=== PATIENT | female | born 1970 | race Two or more races ===

== ENCOUNTER 2016-08-27 09:00 | Outpatient (CLI) | payer BC ==
[~2016-08-27 09:00] MED LIST: CALC-168; LEVO25TA2 PO; PANT40TA4
[2016-08-27 09:46] LABS: BASOPHILS % (AUTO) 0.5 % (0.0-2.0); DIFF TOTAL % 100 %; EOSINOPHILS # (AUTO) 0.1 /CMM (0.0-0.7); EOSINOPHILS % (AUTO) 1.2 % (0.0-6.0); HEMATOCRIT 40 % (33-45); HEMOGLOBIN 13.3 g/dL (11.5-14.8); LYMPHOCYTES # (AUTO) 1.9 /CMM (0.8-4.8); LYMPHOCYTES % (AUTO) 22.3 % (20.0-44.0); MEAN CORPUSCULAR HEMOGLOBIN 28 PG (26.0-33.0); MEAN CORPUSCULAR HGB CONC 33 g/dl (31.0-36.0); MEAN CORPUSCULAR VOLUME 86 fL (82-100); MONOCYTES # (AUTO) 0.4 /CMM (0.1-1.30); MONOCYTES % (AUTO) 5.2 % (2.0-12.0); NEUTROPHILS # (AUTO) 6.1 /CMM (1.8-8.9); NEUTROPHILS % (AUTO) 70.8 % (43.0-81.0); PLATELET COUNT (AUTO) 264 /CMM (150-450); WHITE BLOOD COUNT (AUTO) 8.6 K/uL (4.3-11.0)
[2016-08-27 10:02] LABS: ALBUMIN 3.8 g/dL (3.4-5.0); BILIRUBIN,TOTAL 0.4 mg/dL (0.2-1.0); CALCIUM, SERUM 8.7 mg/dL (8.5-10.1); CREATININE 0.7 mg/dL (0.6-1.3); POTASSIUM 4.1 mmol/L (3.5-5.1); TOTAL PROTEIN, SERUM 7.5 g/dL (6.4-8.2)
[2016-08-27 10:10] LABS: THYROID STIMULATING HORMONE 2.513 uIU/mL (0.358-3.74)
[2016-08-28 08:09] LABS: THYROID PEROXIDASE (TPO) AB 202 IU/mL (0-34); VIT D, 25-HYDROXY 34.2 ng/mL (30.0-100.0)
[2016-08-28 09:22] LABS: *THYROGLOBULIN 15.7 IU/mL (0.0-0.9)
[2016-08-31 20:09] LABS: THYROGLOBULIN BY RIA <2.0 ng/mL (.)
== END 2016-08-27 23:59 | disposition home or self-care (01) ==
LOC: US 09:00
PROVIDERS: ATTEND Family Medicine
DX: E04.2 Nontoxic multinodular goiter (principal); E55.9 Vitamin D deficiency, unspecified
CPT/HCPCS: 36415; 76536-TC; 80053-TC; 80061-TC; 82306; 84439-TC; 84443-TC; 85025-TC; 86376

== ENCOUNTER 2016-10-20 07:42 | Outpatient (CLI) | payer BC ==
[2016-10-20 08:21] LABS: BASOPHILS % (AUTO) 0.5 % (0.0-2.0); EOSINOPHILS # (AUTO) 0.2 /CMM (0.0-0.7); EOSINOPHILS % (AUTO) 1.9 % (0.0-6.0); HEMATOCRIT 40 % (33-45); HEMOGLOBIN 13.3 g/dL (11.5-14.8); MEAN CORPUSCULAR HEMOGLOBIN 29 PG (26.0-33.0); MEAN CORPUSCULAR HGB CONC 33 g/dl (31.0-36.0); MEAN CORPUSCULAR VOLUME 86 fL (82-100); MONOCYTES # (AUTO) 0.5 /CMM (0.1-1.30); MONOCYTES % (AUTO) 5.6 % (2.0-12.0); NEUTROPHILS # (AUTO) 6.3 /CMM (1.8-8.9); PLATELET COUNT (AUTO) 315 /CMM (150-450); RED BLOOD CELL COUNT(AUTO) 4.65 MIL/uL (4.0-5.2)
[2016-10-20 09:40] LABS: ALBUMIN 3.7 g/dL (3.4-5.0); BILIRUBIN,TOTAL 0.3 mg/dL (0.2-1.0); CALCIUM, SERUM 9.1 mg/dL (8.5-10.1); CREATININE 0.8 mg/dL (0.6-1.3); POTASSIUM 4.3 mmol/L (3.5-5.1); TOTAL PROTEIN, SERUM 7.4 g/dL (6.4-8.2)
[2016-10-20] MEDS ORDERED: CT SWABBABLE VALVE TRANS SET 1 EA INFUS.SET MC ONE (09:52)
[2016-10-20] MEDS ORDERED: IV NS 0.9% 250 ML IV ONE (09:52)
[2016-10-20] MEDS ORDERED: IOHEXOL-300 100 ML VIAL IV ONE (09:52)
== END 2016-10-20 23:59 | disposition home or self-care (01) ==
LOC: CT 07:42
PROVIDERS: ATTEND Family Medicine
DX: N20.0 Calculus of kidney (principal); K76.0 Fatty (change of) liver, not elsewhere classified
CPT/HCPCS: 36415; 74178; 80053; 82150; 83690; 85025; J7050; Q9967; 87086-TC

== ENCOUNTER → 2016-10-24 | Outpatient (CLI) | payer BC | END | disposition home or self-care (01) | LOC: MRI 10:53 | PROVIDERS: ATTEND Family Medicine | DX: M17.11 Unilateral primary osteoarthritis, right knee (principal) | CPT/HCPCS: 73721-TC ==

== ENCOUNTER 2016-12-29 10:16 | Outpatient (CLI) | payer BC ==
[2016-12-29] MEDS ORDERED: GADOVERSETAMIDE 5 MMOL/10 ML VIAL IJ ONE (10:17)
[2016-12-29] MEDS ORDERED: GADOVERSETAMIDE 2.5 MMOL/5 ML VIAL IJ ONE (10:17)
== END 2016-12-29 23:59 | disposition home or self-care (01) ==
LOC: MRI 10:16
PROVIDERS: ATTEND Family Medicine
DX: N83.8 Other noninflammatory disorders of ovary, fallopian tube and broad ligament (principal); K76.0 Fatty (change of) liver, not elsewhere classified; Z90.710 Acquired absence of both cervix and uterus
CPT/HCPCS: 72197; 74183; A9579 ×2

== ENCOUNTER 2017-01-26 14:04 | Outpatient (CLI) | payer BC | END 2017-01-26 23:59 | disposition home or self-care (01) | LOC: LAB 14:04 | PROVIDERS: ATTEND Family Medicine | DX: N83.209 Unspecified ovarian cyst, unspecified side (principal) | CPT/HCPCS: 36415; 86304 ==

== ENCOUNTER 2017-02-06 08:34 | Outpatient (CLI) | payer BC ==
[2017-02-06 09:30] LABS: BASOPHILS % (AUTO) 0.5 % (0.0-2.0); EOSINOPHILS # (AUTO) 0.1 /CMM (0.0-0.7); HEMATOCRIT 39 % (33-45); HEMOGLOBIN 13.1 g/dL (11.5-14.8); LYMPHOCYTES # (AUTO) 1.9 /CMM (0.8-4.8); LYMPHOCYTES % (AUTO) 19.1 % (20.0-44.0); MEAN CORPUSCULAR HEMOGLOBIN 29 PG (26.0-33.0); MEAN CORPUSCULAR HGB CONC 34 g/dl (31.0-36.0); MEAN CORPUSCULAR VOLUME 87 fL (82-100); MONOCYTES # (AUTO) 0.5 /CMM (0.1-1.30); MONOCYTES % (AUTO) 5.4 % (2.0-12.0); NEUTROPHILS # (AUTO) 7.2 /CMM (1.8-8.9); PLATELET COUNT (AUTO) 284 /CMM (150-450); RDW COEFFICIENT OF VARIATION 13.9 (11.5-15.0); RED BLOOD CELL COUNT(AUTO) 4.53 MIL/uL (4.0-5.2); WHITE BLOOD COUNT (AUTO) 9.8 K/uL (4.3-11.0)
[2017-02-06 09:50] LABS: ALBUMIN 3.8 g/dL (3.4-5.0); BILIRUBIN,TOTAL 0.4 mg/dL (0.2-1.0); CALCIUM, SERUM 8.4 mg/dL (8.5-10.1); CREATININE 0.6 mg/dL (0.6-1.3); POTASSIUM 4.1 mmol/L (3.5-5.1); TOTAL PROTEIN, SERUM 7.2 g/dL (6.4-8.2)
[2017-02-06 09:59] LABS: THYROID STIMULATING HORMONE 1.483 uIU/mL (0.358-3.74)
[2017-02-07 09:13] LABS: T3 TOTAL 113 ng/dL (71-180); THYROID PEROXIDASE (TPO) AB 156 IU/mL (0-34)
== END 2017-02-06 23:59 | disposition home or self-care (01) ==
LOC: LAB 08:34
PROVIDERS: ATTEND Family Medicine
DX: E06.3 Autoimmune thyroiditis (principal)
CPT/HCPCS: 36415; 80053-TC; 80061-TC; 82306; 84439-TC; 84443-TC; 84480; 85025-TC; 86376

== ENCOUNTER 2017-07-08 09:46 | Outpatient (CLI) | payer BC ==
[2017-07-08 10:28] LABS: BASOPHILS % (AUTO) 0.5 % (0.0-2.0); EOSINOPHILS # (AUTO) 0.1 /CMM (0.0-0.7); EOSINOPHILS % (AUTO) 1.4 % (0.0-6.0); HEMATOCRIT 39 % (33-45); HEMOGLOBIN 13.1 g/dL (11.5-14.8); LYMPHOCYTES # (AUTO) 1.9 /CMM (0.8-4.8); LYMPHOCYTES % (AUTO) 24.1 % (20.0-44.0); MEAN CORPUSCULAR HEMOGLOBIN 28 PG (26.0-33.0); MEAN CORPUSCULAR HGB CONC 34 g/dl (31.0-36.0); MEAN CORPUSCULAR VOLUME 85 fL (82-100); MONOCYTES # (AUTO) 0.5 /CMM (0.1-1.30); NEUTROPHILS # (AUTO) 5.2 /CMM (1.8-8.9); PLATELET COUNT (AUTO) 310 /CMM (150-450); RDW COEFFICIENT OF VARIATION 14.2 (11.5-15.0); WHITE BLOOD COUNT (AUTO) 7.8 K/uL (4.3-11.0)
[2017-07-08 10:50] LABS: ALBUMIN 3.8 g/dL (3.4-5.0); BILIRUBIN,TOTAL 0.4 mg/dL (0.2-1.0); CALCIUM, SERUM 8.9 mg/dL (8.5-10.1); CREATININE 0.7 mg/dL (0.6-1.3)
[2017-07-08 11:04] LABS: TOTAL PROTEIN, SERUM 7.5 g/dL (6.4-8.2)
[2017-07-08 11:07] LABS: THYROID STIMULATING HORMONE 3.108 uIU/mL (0.358-3.74)
[2017-07-09 07:08] LABS: THYROID PEROXIDASE (TPO) AB 204 IU/mL (0-34)
== END 2017-07-08 23:59 | disposition home or self-care (01) ==
LOC: LAB 09:46
PROVIDERS: ATTEND Family Medicine
DX: Z11.59 Encounter for screening for other viral diseases (principal); E06.3 Autoimmune thyroiditis; E55.9 Vitamin D deficiency, unspecified
CPT/HCPCS: 36415; 80053-TC; 80061-TC; 82306; 84436-TC; 84443-TC; 85025-TC; 86376; 86709-TC

== ENCOUNTER 2017-07-17 08:36 | Outpatient (CLI) | payer BC | END 2017-07-18 23:59 | disposition home or self-care (01) | LOC: US 08:36 | PROVIDERS: ATTEND Family Medicine | DX: E04.1 Nontoxic single thyroid nodule (principal); N83.291 Other ovarian cyst, right side; N83.292 Other ovarian cyst, left side; N88.8 Other specified noninflammatory disorders of cervix uteri; Z90.710 Acquired absence of both cervix and uterus | CPT/HCPCS: 76536-TC; 76856-TC ==

== ENCOUNTER 2017-12-02 08:51 | Outpatient (CLI) | payer BC ==
[2017-12-02 09:49] LABS: APPEARANCE,URINE SL CLOUDY (CLEAR); BILIRUBIN,URINE NEGATIVE (NEGATIVE); BLOOD, URINE NEGATIVE Ery/uL (NEGATIVE); COLOR,URINE YELLOW (YELLOW); KETONES,URINE NEGATIVE (NEGATIVE); LEUKOCYTE ESTERASE ,URINE TRACE (NEGATIVE); NITRITE, URINE NEGATIVE (NEGATIVE); PH,URINE 7.5 (5.0-8.0); PROTEIN,URINE NEGATIVE (NEGATIVE); UGLUCOSE NEGATIVE (NEGATIVE); UROBILINOGEN,URINE 0.2 EU/dL (0.2)
[2017-12-02 09:52] LABS: BASOPHILS % (AUTO) 0.5 % (0.0-2.0); EOSINOPHILS % (AUTO) 1.7 % (0.0-6.0); HEMATOCRIT 39 % (33-45); HEMOGLOBIN 13.1 g/dL (11.5-14.8); LYMPHOCYTES # (AUTO) 1.8 /CMM (0.8-4.8); MEAN CORPUSCULAR HGB CONC 34 g/dl (31.0-36.0); MEAN CORPUSCULAR VOLUME 84 fL (82-100); MONOCYTES # (AUTO) 0.5 /CMM (0.1-1.30); MONOCYTES % (AUTO) 6.6 % (2.0-12.0); NEUTROPHILS # (AUTO) 5.7 /CMM (1.8-8.9); NEUTROPHILS % (AUTO) 69.2 % (43.0-81.0); PLATELET COUNT (AUTO) 339 /CMM (150-450); RDW COEFFICIENT OF VARIATION 13.7 (11.5-15.0); RED BLOOD CELL COUNT(AUTO) 4.65 MIL/uL (4.0-5.2); WHITE BLOOD COUNT (AUTO) 8.3 K/uL (4.3-11.0)
[2017-12-02 10:03] LABS: BACTERIA,URINE None seen /HPF (None Seen); RBC,URINE NONE SEEN /HPF (0-2); SQUAMOUS EPITHELIAL CELL,UR Few /HPF (None Seen)
[2017-12-02 10:09] LABS: ALBUMIN 4.1 g/dL (3.4-5.0); BILIRUBIN,TOTAL 0.4 mg/dL (0.2-1.0); CALCIUM, SERUM 9.4 mg/dL (8.5-10.1); CREATININE 0.7 mg/dL (0.6-1.3); TOTAL PROTEIN, SERUM 8.3 g/dL (6.4-8.2)
[2017-12-02 10:17] LABS: FREE T4 (FREE THYROXINE) 1.05 ng/dL (0.76-1.46); THYROID STIMULATING HORMONE 2.289 uIU/mL (0.358-3.74)
== END 2017-12-02 23:59 | disposition home or self-care (01) ==
LOC: LAB 08:51
PROVIDERS: ATTEND Family Medicine
DX: E55.9 Vitamin D deficiency, unspecified (principal); R10.9 Unspecified abdominal pain; R79.89 Other specified abnormal findings of blood chemistry
CPT/HCPCS: 36415; 80053-TC; 80061-TC; 81000-TC; 82306; 84439-TC; 84443-TC; 85025-TC

== ENCOUNTER 2018-06-21 09:53 | Outpatient (CLI) | payer BC | END 2018-06-21 23:59 | disposition home or self-care (01) | LOC: RAD 09:53 | PROVIDERS: ATTEND Family Medicine | DX: M77.32 Calcaneal spur, left foot (principal); M79.9 Soft tissue disorder, unspecified; M20.12 Hallux valgus (acquired), left foot | CPT/HCPCS: 71046; 73610-TC; 73630-TC ==

== ENCOUNTER 2018-08-05 09:17 | Outpatient (CLI) | payer BC ==
[2018-08-05] MEDS ORDERED: GADODIAMIDE 2.5 MMOL/5 ML VIAL IJ ONE (09:18)
[2018-08-05] MEDS ORDERED: GADODIAMIDE 5 MMOL/10 ML VIAL IJ ONE (09:18)
== END 2018-08-05 23:59 | disposition home or self-care (01) ==
LOC: MRI 09:17
PROVIDERS: ATTEND Family Medicine
DX: G45.3 Amaurosis fugax (principal)
CPT/HCPCS: 70553-TC; A9579

== ENCOUNTER 2018-11-04 09:49 | Outpatient (CLI) | payer BC | END 2018-11-04 23:59 | disposition home or self-care (01) | LOC: LAB 09:49 | PROVIDERS: ATTEND Family Medicine | DX: Z11.3 Encounter for screening for infections with a predominantly sexual mode of transmission (principal); M77.31 Calcaneal spur, right foot; M25.471 Effusion, right ankle | CPT/HCPCS: 36415; 73610-TC; 84550-TC; 85652-TC; 86431-TC; 87491; 87591 ==

== ENCOUNTER 2018-11-05 08:45 | Outpatient (CLI) | payer BC | END 2018-11-05 23:59 | disposition home or self-care (01) | LOC: US 08:45 | PROVIDERS: ATTEND Family Medicine | DX: N83.202 Unspecified ovarian cyst, left side (principal) | CPT/HCPCS: 76856-TC ==

== ENCOUNTER 2019-12-23 13:13 | Outpatient (CLI) | payer BC ==
[2019-12-23 14:35] LABS: BASOPHILS % (AUTO) 0.4 % (0.0-2.0); EOSINOPHILS % (AUTO) 1.3 % (0.0-6.0); HEMATOCRIT 41 % (33-45); HEMOGLOBIN 13.6 g/dL (11.5-14.8); LYMPHOCYTES # (AUTO) 2.3 /CMM (0.8-4.8); LYMPHOCYTES % (AUTO) 22.5 % (20.0-44.0); MEAN CORPUSCULAR HGB CONC 33 g/dl (31.0-36.0); MEAN CORPUSCULAR VOLUME 87 fL (82-100); MONOCYTES # (AUTO) 0.6 /CMM (0.1-1.30); NEUTROPHILS # (AUTO) 7.1 /CMM (1.8-8.9); NEUTROPHILS % (AUTO) 69.8 % (43.0-81.0); PLATELET COUNT (AUTO) 286 /CMM (150-450); RED BLOOD CELL COUNT(AUTO) 4.69 MIL/uL (4.0-5.2); WHITE BLOOD COUNT (AUTO) 10.2 K/uL (4.3-11.0)
[2019-12-23 15:04] LABS: ALBUMIN 3.7 g/dL (3.4-5.0); BILIRUBIN,TOTAL 0.3 mg/dL (0.2-1.0); CREATININE 0.7 mg/dL (0.6-1.3); POTASSIUM 3.7 mmol/L (3.5-5.1); TOTAL PROTEIN, SERUM 7.6 g/dL (6.4-8.2)
[2019-12-23 15:17] LABS: THYROID STIMULATING HORMONE 2.844 uIU/mL (0.358-3.74)
[2019-12-24 17:06] LABS: FOLIC ACID 12.1 ng/mL (>3.0)
== END 2019-12-23 23:59 | disposition home or self-care (01) ==
LOC: LAB 13:13
PROVIDERS: ATTEND Family Medicine
DX: E55.9 Vitamin D deficiency, unspecified (principal); E56.9 Vitamin deficiency, unspecified; E06.3 Autoimmune thyroiditis
CPT/HCPCS: 36415; 80053-TC; 80061-TC; 82306; 84439-TC; 84443-TC; 85025-TC

== ENCOUNTER 2019-12-26 12:44 | Outpatient (CLI) | payer BC ==
[2019-12-26] MEDS ORDERED: GADOTERIDOL 279.3 MG/ML VIAL IV ONE (12:45)
== END 2019-12-26 23:59 | disposition home or self-care (01) ==
LOC: MRI 12:44
PROVIDERS: ATTEND Family Medicine
DX: R22.1 Localized swelling, mass and lump, neck (principal)
CPT/HCPCS: 70542; A9579

== ENCOUNTER 2020-02-06 19:25 | Emergency (ER) | payer BC, OTHER ==
[~2020-02-06] VITALS: Ht 157.5 cm; Wt 85.3 kg
--- NOTE | 2020-02-06 19:42 | NUR ---
BIBS FROM HOME TO ER BED 5. AAOX4. NOT IN RESP DISTRESS, BREATHING EVEN AND UNLABORED, SATTING AT 97% ON RA. AMBULATORY. CAME IN FOR COUGH AND SOB FOR THE PAST WEEK. PT WAS TESTED FOR COVID 10DAYS AGO AND WAS NEGATIVE. 3DAYS AFTER PT STARTED TO DEVELOP THE SYMPTOMS. AWAITING MD FOR EVAL.
--- NOTE | 2020-02-06 22:35 | NUR ---
Patient discharged to home in stable condition. Written and verbal after care instructions given. Patient verbalizes understanding of instruction.Pt ambulatory with a steady gait
[2020-02-06 22:37] VITALS: BP 127/88
== END 2020-02-06 22:37 | disposition home or self-care (01) ==
LOC: ER 19:25
DX: J06.9 Acute upper respiratory infection, unspecified (principal); E03.9 Hypothyroidism, unspecified; Z98.890 Other specified postprocedural states; Z41.1 Encounter for cosmetic surgery; Z79.899 Other long term (current) drug therapy
CPT/HCPCS: 71045-TC

== ENCOUNTER 2021-04-01 10:50 | Outpatient (CLI) | payer BC ==
[~2021-04-01 10:50] MED LIST changes: -PANT40TA4; +PANT40TA49
== END 2021-04-01 23:59 | disposition home or self-care (01) ==
LOC: US 10:50
PROVIDERS: ATTEND Family Medicine
DX: N83.202 Unspecified ovarian cyst, left side (principal); N88.8 Other specified noninflammatory disorders of cervix uteri; M79.89 Other specified soft tissue disorders; M25.561 Pain in right knee; M79.672 Pain in left foot; Z90.710 Acquired absence of both cervix and uterus
CPT/HCPCS: 73562; 73610-TC; 73630-TC; 76856-TC

== ENCOUNTER 2021-06-24 11:06 | Outpatient (CLI) | payer BC ==
[2021-06-29] MEDS ORDERED: CEPH500T PO (12:28)
== END 2021-06-24 23:59 | disposition home or self-care (01) ==
LOC: LAB 11:06
PROVIDERS: ATTEND Obstetrics & Gynecology
DX: Z01.812 Encounter for preprocedural laboratory examination (principal); Z20.822 Contact with and (suspected) exposure to COVID-19
CPT/HCPCS: C9803; U0003

== ENCOUNTER 2021-06-28 07:06 | Inpatient (IN) | payer BC ==
[~2021-06-28] VITALS: Ht 157.5 cm; Wt 93.0 kg
[2021-06-28] MEDS ORDERED: ANESTHESIA TRAY IN PYXIS 1 EA TRAY MC ONE (07:51)
[2021-06-28] MEDS ORDERED: BUPIVACAINE 0.25% 75 MG/30 ML VIAL ONE (07:51)
[2021-06-28] MEDS ORDERED: BUPIVACAINE MPF W/EPI 0.25% 30 ML VIAL ONE (07:51)
[2021-06-28] MEDS ORDERED: MIDAZOLAM HCL 2 MG/2ML VIAL ONE (08:09)
[2021-06-28] MEDS ORDERED: FENTANYL PF 250MCG/5ML AMPUL ONE (08:09)
[2021-06-28] MEDS ORDERED: ROCURONIUM BROMIDE 50 MG/5 ML ONE (08:09)
--- NOTE | 2021-06-28 08:35 | NUR ---
RN MS NOTES Pt CAME IN FOR DAY SURGERY, L SALPINGO OOPHORECTOMY AND POSSIBLE R SALPINGO OOPHORECTOMY. Pt IS A/O X 4. BREATHING IS EVEN AND UNLABORED ON ROOM AIR. NO COMPLAINTS OF PAIN OR SIGNS OF DISTRESS. Pt HAS NOW LEFT THE FLOOR VIA GURNEY FOR DAY SURGERY.
[2021-06-28 08:37] LABS: BASOPHILS # (AUTO) 0.1 K/uL (0.0-0.2); BASOPHILS % (AUTO) 0.7 % (0.0-2.0); EOSINOPHILS % (AUTO) 1.5 % (0.0-6.0); HEMATOCRIT 41 % (33-45); HEMOGLOBIN 13.7 g/dL (11.5-14.8); LYMPHOCYTES % (AUTO) 26.1 % (20.0-44.0); MEAN CORPUSCULAR HGB CONC 33 g/dl (31.0-36.0); MEAN CORPUSCULAR VOLUME 87 fL (82-100); MONOCYTES # (AUTO) 0.5 K/uL (0.1-1.30); MONOCYTES % (AUTO) 6.1 % (2.0-12.0); NEUTROPHILS # (AUTO) 5.1 K/uL (1.8-8.9); NEUTROPHILS % (AUTO) 65.6 % (43.0-81.0); PLATELET COUNT (AUTO) 275 K/uL (150-450); RED BLOOD CELL COUNT(AUTO) 4.75 MIL/uL (4.0-5.2); WHITE BLOOD COUNT (AUTO) 7.8 K/uL (4.3-11.0)
[2021-06-28 08:58] LABS: CALCIUM, SERUM 9.2 mg/dL (8.5-10.1); CREATININE 0.7 mg/dL (0.6-1.3); POTASSIUM 4.2 mmol/L (3.5-5.1)
[2021-06-28 09:04] LABS: ALBUMIN 4.1 g/dL (3.4-5.0); BILIRUBIN,TOTAL 0.5 mg/dL (0.2-1.0); TOTAL PROTEIN, SERUM 7.9 g/dL (6.4-8.2)
[2021-06-28] MEDS ORDERED: FENTANYL PF 100MCG/2ML AMPUL ONE (10:39)
[2021-06-28] MEDS: oxyCODONE/APAP (5/325 MG) 1 UDTAB TABLET PO PRN ×2 (12:46→19:01)
[2021-06-28 12:54] LABS: BASOPHILS # (AUTO) 0.1 K/uL (0.0-0.2); BASOPHILS % (AUTO) 0.4 % (0.0-2.0); EOSINOPHILS % (AUTO) 0.1 % (0.0-6.0); HEMATOCRIT 40 % (33-45); HEMOGLOBIN 12.9 g/dL (11.5-14.8); LYMPHOCYTES # (AUTO) 0.9 K/uL (0.8-4.8); LYMPHOCYTES % (AUTO) 4.5 % (20.0-44.0); MEAN CORPUSCULAR HGB CONC 33 g/dl (31.0-36.0); MEAN CORPUSCULAR VOLUME 88 fL (82-100); MONOCYTES # (AUTO) 0.3 K/uL (0.1-1.30); MONOCYTES % (AUTO) 1.6 % (2.0-12.0); NEUTROPHILS # (AUTO) 19.2 K/uL (1.8-8.9); NEUTROPHILS % (AUTO) 93.4 % (43.0-81.0); PLATELET COUNT (AUTO) 272 K/uL (150-450); RED BLOOD CELL COUNT(AUTO) 4.53 MIL/uL (4.0-5.2); WHITE BLOOD COUNT (AUTO) 20.5 K/uL (4.3-11.0)
[2021-06-28] MEDS ORDERED: HYDROMORPHONE 1 MG/1 ML DISP.SYRIN IV PRN ×2 (14:30)
[2021-06-28] MEDS ORDERED: HYDROMORPHONE 2 MG/1 ML SDV IV PRN (14:30)
--- NOTE | 2021-06-28 14:50 | NUR ---
RN NOTES PT NOTED MOANING AND GRIMACING WITH C/O SHARP ACHING PAIN ON LOWER ABDOMEN AND LOWER BACK. PRN DILAUDID 2MG/ 2ML IVP ADMINISTERED AT 1448. WILL CONTINUE TO MONITOR AND REASSESS PT.
[2021-06-28] MEDS ORDERED: oxyCODONE/APAP (5/325 MG) 1 UDTAB TABLET PO PRN (15:00)
[2021-06-28 15:58] LABS: BASOPHILS # (AUTO) 0.1 K/uL (0.0-0.2); BASOPHILS % (AUTO) 0.3 % (0.0-2.0); HEMATOCRIT 40 % (33-45); LYMPHOCYTES # (AUTO) 0.9 K/uL (0.8-4.8); LYMPHOCYTES % (AUTO) 4.6 % (20.0-44.0); MEAN CORPUSCULAR HGB CONC 33 g/dl (31.0-36.0); MEAN CORPUSCULAR VOLUME 87 fL (82-100); MONOCYTES # (AUTO) 0.4 K/uL (0.1-1.30); MONOCYTES % (AUTO) 2.2 % (2.0-12.0); NEUTROPHILS # (AUTO) 18.4 K/uL (1.8-8.9); NEUTROPHILS % (AUTO) 92.9 % (43.0-81.0); PLATELET COUNT (AUTO) 270 K/uL (150-450); RED BLOOD CELL COUNT(AUTO) 4.53 MIL/uL (4.0-5.2); WHITE BLOOD COUNT (AUTO) 19.8 K/uL (4.3-11.0)
[2021-06-28 16:00] VITALS: BP 125/73
[2021-06-28] MEDS ORDERED: MORPHINE SULFATE INJ 2 MG/ML DISP.SYRIN IV PRN (17:00)
[2021-06-28] MEDS ORDERED: IV 1/2NS 1000 ML 1,000 ML IV PRN ×2 (17:00→22:54)
[2021-06-28] MEDS ORDERED: MAG HYDROX/AL HYDROX/SIMETH 30 ML UDC PO PRN (17:00)
[2021-06-28] MEDS ORDERED: Z GUARD REMEDY 2 OZ OINT TP PRN (17:00)
[2021-06-28] MEDS ORDERED: MAGNESIUM HYDROXIDE 30 ML UDC PO PRN (17:00)
[2021-06-28] MEDS ORDERED: ACETAMINOPHEN 325 MG TABLET PO PRN (17:00)
[2021-06-28] MEDS ORDERED: ZOLPIDEM TARTRATE 5 MG TABLET PO PRN (17:00)
[2021-06-28] MEDS: CEFOXITIN 2 G in IV D5W 50 ML IV SCH ×2 (17:17→22:29)
[2021-06-28] MEDS ORDERED: ONDANSETRON HCL/PF 4 MG/2 ML VIAL IV PRN (17:30)
--- NOTE | 2021-06-28 18:46 | NUR ---
RN CLOSING NOTES Pt IS AWAKE IN BED , A/O X4. DAUGHTER IS AT BEDSIDE. Pt's BREATHING IS EVEN AND UNLABORED ON NC WITH 1.5L. COMPLAINTS OF PAIN AND NAUSEA MADE THROUGHOUT THE SHIFT, ZOFRAN AND DILAUDID GIVEN. IV ACCESS ON R HAND SL. IT IS PATENT AND INTACT. SAFETY MEASURES IN PLACE: BED IS LOCKED AND IN LOWEST POSITION, SIDE RAILS UP X2. CALL LIGHT AND BEDSIDE TABLE ARE WITHIN REACH. WILL ENDORE TO ONCOMING SHIFT.
--- NOTE | 2021-06-28 19:45 | NUR ---
Patient is A&Ox4. In 10/20 pain but received perc 2 tab at 1901. Will reassess. Patient also reminded to notify nurse of any needs as pain and nausea medicines are PRN. Denies any needs at this time. Clear yellow urine draining to f/c. Call light within reach, bed in lowest position, HOB in semi-fowlers, bed brakes on.
[2021-06-28 20:00] VITALS: BP 105/64
--- NOTE | 2021-06-28 21:20 | NUR ---
Lactic acid came back 2.2. New order from Dr. Lan [place] for NS bolus 500cc x1 now.
[2021-06-28] MEDS ORDERED: IV NS 0.9% 500 ML IV ONE ×2 (21:30→23:30)
[2021-06-28] MEDS: ONDANSETRON HCL/PF 4 MG/2 ML VIAL IVP PRN (22:35)
[2021-06-28 22:59] LABS: BILIRUBIN,DIRECT 0.1 mg/dL (0.0-0.2)
--- NOTE | 2021-06-28 23:23 | NUR ---
lactic acid went up to 3.1 on-call provider ordered another 500cc bolus NS
[2021-06-29] MEDS: oxyCODONE/APAP (5/325 MG) 1 UDTAB TABLET PO PRN ×3 (02:35→17:02)
[2021-06-29] MEDS: CEFOXITIN 2 G in IV D5W 50 ML IV SCH (05:21)
--- NOTE | 2021-06-29 06:50 | NUR ---
mrsa swab done put in [facility] fridge.
--- NOTE | 2021-06-29 06:51 | NUR ---
Patient overnight had x1 episode of nausea relieved by PRN Zofran. No emesis. On clear liquids only. Patient c/o pain x3 and states the 2 tabs of percocet works best for her. Was able to ambulate x1 around the room after admin of PRN Percocet. 1550cc output of clear yellow urine to f/c. Received x2 500cc NS bolus d/t elevated lactic acid. tolerated well.
[2021-06-29 07:11] LABS: BASOPHILS % (AUTO) 0.2 % (0.0-2.0); HEMATOCRIT 34 % (33-45); HEMOGLOBIN 11.2 g/dL (11.5-14.8); LYMPHOCYTES # (AUTO) 1.9 K/uL (0.8-4.8); LYMPHOCYTES % (AUTO) 13.7 % (20.0-44.0); MEAN CORPUSCULAR HGB CONC 33 g/dl (31.0-36.0); MEAN CORPUSCULAR VOLUME 88 fL (82-100); MONOCYTES # (AUTO) 1.1 K/uL (0.1-1.30); MONOCYTES % (AUTO) 7.6 % (2.0-12.0); NEUTROPHILS # (AUTO) 11.2 K/uL (1.8-8.9); NEUTROPHILS % (AUTO) 78.5 % (43.0-81.0); PLATELET COUNT (AUTO) 249 K/uL (150-450); RED BLOOD CELL COUNT(AUTO) 3.89 MIL/uL (4.0-5.2); WHITE BLOOD COUNT (AUTO) 14.2 K/uL (4.3-11.0)
[2021-06-29] MEDS ORDERED: PANTOPRAZOLE 40 MG TABLET.DR PO SCH (07:30)
[2021-06-29 07:32] LABS: CREATININE 0.9 mg/dL (0.6-1.3); MAGNESIUM 1.9 mg/dL (1.8-2.4); POTASSIUM 3.7 mmol/L (3.5-5.1)
--- NOTE | 2021-06-29 07:45 | NUR ---
RN OPENING NOTES PATIENT IN BED RESTING, AWAKE. A/O X4. NO S/S OF PAIN NOTED AT THIS TIME. ON ROOM AIR, NO DISTRESS OR SHORTNESS OF BREATH NOTED. IV ON RIGHT HAND #20G. FALL AND SAFETY MEASURES IN PLACE, BED ALARM ON, BED IN LOW AND LOCK POSITION, CALL LIGHT AND TABLE WITHIN EASY REACH, SIDE RAILS UP X2. WILL CONTINUE TO MONITOR.
[2021-06-29 08:00] VITALS: BP 99/60
[2021-06-29] MEDS ORDERED: LEVOTHYROXINE SODIUM 25 MCG TABLET PO SCH (09:00)
[2021-06-29] MEDS ORDERED: CALCIUM CARB 600MG /VIT D 1 EACH TABLET PO SCH (09:00)
[2021-06-29] MEDS: ONDANSETRON HCL/PF 4 MG/2 ML VIAL IVP PRN (11:03)
[2021-06-29] MEDS ORDERED: CEPH500T PO (12:28)
[2021-06-29 15:54] VITALS: BP 111/57
--- NOTE | 2021-06-29 16:40 | NUR ---
RN NOTES PATIENT COMPLAINED OF PAIN ON IV SITE, IV WAS REMOVED AND PATIENT REFUSED NEW IV. IV MEDICATION WAS UNABLE TO BE ADMINISTERED. CHARGE NURSE AND DR. FUNK
--- NOTE | 2021-06-29 17:38 | NUR ---
MUSICAL PERFORMER NOTE PATIENT WAS DISCHARGE IN MEDICAL STABLE CONDITIONS. A/O 4, V/S TAKEN, STABLE AND RECORDED. NO IV ACCESS. SKIN ASSESSMENT DONE, SKIN INTACT. NAME ARM BAND REMOVED. ALL BELONGING CHECKED AND SIGNED. HEALTH TEACHING AND DISCHARGE INSTRUCTIONS GIVEN AND VERBALIZED UNDERSTANDING. PATIENT LEFT UNIT AMBULATING WITH NO SIGNS OF DISTRESS, ACCOMPANIED BY DAUGHTER. PATIENT IS GOING HOME. CHARGE NURSE AWARE OF DISCHARGED.
== END 2021-06-29 17:41 | disposition home or self-care (01) | DRG 742 ==
LOC: DS 07:06 → MED 07:10
PROVIDERS: ADMIT Nurse Practitioner Acute Care; ATTEND Nurse Practitioner Acute Care
PROC: 0UT70ZZ Resection of Bilateral Fallopian Tubes, Open Approach (ICD-10-PCS; principal; 2021-06-28)
PROC: 0UT20ZZ Resection of Bilateral Ovaries, Open Approach (ICD-10-PCS; 2021-06-28)
DX: N83.202 Unspecified ovarian cyst, left side (principal); E87.2 Acidosis; K29.70 Gastritis, unspecified, without bleeding; E03.9 Hypothyroidism, unspecified; Z98.890 Other specified postprocedural states; D72.829 Elevated white blood cell count, unspecified; E66.9 Obesity, unspecified; Z68.37 Body mass index [BMI] 37.0-37.9, adult; N83.201 Unspecified ovarian cyst, right side; N83.8 Other noninflammatory disorders of ovary, fallopian tube and broad ligament
CPT/HCPCS: 36415; 71045-TC; 80048-TC; 80053-TC; 82248-TC; 83605-TC; 83735-TC; 84100-TC; 85025-TC; 85730-TC; 87040-TC; 87081-TC; 88305-TC; A4217; A6209; G0378; J0330; J0690; J0694; J1100; J1170; J1885; J2250; J2270; J2405; J2704; J3010; J3490; J7030; J7040; J7050; J7060

== ENCOUNTER 2022-05-20 11:48 | Outpatient (CLI) | payer BC ==
[~2022-05-20 11:48] MED LIST changes: +CEPH500T PO
[2022-05-20] MEDS ORDERED: GADOTERATE MEGLUMINE 10 MMOL/20 ML VIAL IV ONE (11:49)
== END 2022-05-20 23:59 | disposition home or self-care (01) ==
LOC: MRI 11:48
PROVIDERS: ATTEND Family Medicine
DX: N83.312 Acquired atrophy of left ovary (principal); N83.311 Acquired atrophy of right ovary; N85.8 Other specified noninflammatory disorders of uterus; R16.2 Hepatomegaly with splenomegaly, not elsewhere classified
CPT/HCPCS: 74183; 72197; A9575

== ENCOUNTER → 2022-07-02 | Outpatient (CLI) | payer BC | END | disposition home or self-care (01) | LOC: LAB 08:41 | PROVIDERS: ATTEND Family Medicine | DX: T14.8XXA Other injury of unspecified body region, initial encounter (principal); X58.XXXA Exposure to other specified factors, initial encounter; Y93.89 Activity, other specified; Y92.89 Other specified places as the place of occurrence of the external cause; Y99.8 Other external cause status | CPT/HCPCS: 36415; 86706; 86803; 87340 ==